=== PATIENT | male | born 1975 | race Asian ===

== ENCOUNTER 2017-08-11 07:16 | Inpatient (IN) | payer MEDICAID, OTHER ==
[2017-08-11] VITALS (10 sets, daily range): BP systolic 110–155; BP diastolic 70–102
[~2017-08-11] VITALS: Ht 182.9 cm; Wt 72.6 kg
[2017-08-11] MEDS ORDERED: Terbutaline 1mg/ml Inj SUBQ ONE ×4 (07:30→07:45)
[2017-08-11] MEDS ORDERED: Solu-MEDROL 125mg Inj IVP ONE (07:30)
[2017-08-11] MEDS: Ipratropium 0.02% Inh Soln 2.5ml UD HHN SCH ×2 (07:35→09:00)
[2017-08-11] MEDS: Albuterol ud Inhalation HHN SCH ×3 (07:35→09:01)
[2017-08-11] MEDS ORDERED: Terbutaline 1mg/ml Inj ONE (07:39)
[2017-08-11 07:40] LABS: BASOPHILS % (AUTO) 1.4 % (0.0-2.0); EOSINOPHILS % (AUTO) 11.3 % (0.0-3.0); HEMATOCRIT 51.5 % (42.0-52.0); LYMPHOCYTES % (AUTO) 42.5 % (20.0-45.0); MEAN CORPUSCULAR VOLUME 95 FL (80-99); MONOCYTES % (AUTO) 10.3 % (1.0-10.0); NEUTROPHILS % (AUTO) 34.5 % (45.0-75.0); PLATELET COUNT 446 K/UL (150-450); RED BLOOD COUNT 5.41 M/UL (4.70-6.10); RED CELL DISTRIBUTION WIDTH 11.7 % (11.6-14.8); WHITE BLOOD COUNT 14.2 K/UL (4.8-10.8)
[2017-08-11 07:48] LABS: HEMOGLOBIN 18.2 G/DL (14.2-18.0)
[2017-08-11 07:49] LABS: ANION GAP 7 mmol/L (5-15); BLOOD UREA NITROGEN 13 mg/dL (7-18); CALCIUM 8.9 MG/DL (8.5-10.1); CARBON DIOXIDE 28 MMOL/L (21-32); CHLORIDE 106 MMOL/L (98-107); CREATININE 0.8 MG/DL (0.55-1.30); POTASSIUM 4.4 MMOL/L (3.5-5.1); SODIUM 141 MMOL/L (136-145)
--- NOTE | 2017-08-11 07:51 | Emergency Room Report ---
History of Present Illness General Chief Complaint: Dyspnea/Respdistress Source: Patient Present Illness HPI Patient has a history of asthma. Develop acute onset of shortness of breath over last 30 minutes prior to arrival. According to the paramedics they found the patient in the car severely short of breath. Patient was using albuterol without much improvement. Patient has inhaler home. Patient complains of severe shortness of breath and states that this is an asthma exacerbation. He is currently speaking in complete sentences appears diaphoretic and tachypneic. Patient is undergoing respiratory treatment. Was brought here by paramedics on respiratory treatment. Patient had received 0.3 mg epinephrine subcutaneous prior to arrival.No other modifying factors. No other associated signs and symptoms. No other complaints were noted. Allergies: Coded Allergies: ASPIRIN (Verified Allergy, Intermediate, 08/11/17) IBUPROFEN (Verified Allergy, Unknown, 08/11/17) Patient History Past Medical History: asthma Social History: Denies: smoking, alcohol use, drug use Reviewed Nursing Documentation: PMH: Agreed; PSxH: Agreed Nursing Documentation-PMH Hx Asthma: Yes Review of Systems All Other Systems: negative except mentioned in HPI Physical Exam Vital Signs Date Time Temp Pulse Resp B/P (MAP) Pulse Ox O2 Delivery O2 Flow Rate FiO2 08/11/17 07:15 120 26 150/90 94 Room Air 08/11/17 07:25 15.0 35 Sp02 EP Interpretation: reviewed, abnormal - Noted to be low. General Appearance: alert, severe distress Head: atraumatic Eyes: bilateral eye normal inspection ENT: normal ENT inspection, hearing grossly normal, normal voice Neck: full range of motion, supple Respiratory: respiratory distress, decreased breath sounds, accessory muscle use, wheezing, expiration, inspiration Cardiovascular #1: no edema, tachycardia Gastrointestinal: normal inspection, normal bowel sounds, non tender, soft Genitourinary: no CVA tenderness Musculoskeletal: normal inspection, back normal, normal range of motion Neurologic: normal inspection, alert, responsive, speech normal Psychiatric: depressed affect, anxious Skin: diaphoresis Procedures Critical Care Time Critical Care Time Patient had a critical medical condition which untreated could potentially result in life or limb threatening injury. Total critical care time excluding procedures was greater than 65minutes. Medical Decision Making Diagnostic Impression: Primary Impression: Respiratory distress Additional Impression: Asthma exacerbation ER Course Patient presents emergency department today complaining of shortness of breath. Differential diagnoses include acute pneumonia, CHF, acute coronary syndrome, pneumothorax, asthma, COPD flare, just to name a few. Patient appear to be severely short of breath. This was considered critical. IV was established. Patient was given Solu-Medrol and magnesium. Patient was given subcutaneous terbutaline 2. Patient was placed on BiPAP. I she'll blood gas in detail initially showed patient to be retaining large amounts of CO2 and is acidotic. Patient however states improve steadily. Patient was examined multiple times repeat R toe blood gas shows that patient was improving. Case was discussed with Dr. Juarez. Patient will be admitted to [facility] for further treatment. Labs Test 08/11/17 07:15 08/11/17 08:02 08/11/17 09:32 White Blood Count 14.2 K/UL (4.8-10.8) Red Blood Count 5.41 M/UL (4.70-6.10) Hemoglobin 18.2 G/DL (14.2-18.0) Hematocrit 51.5 % (42.0-52.0) Mean Corpuscular Volume 95 FL (80-99) Mean Corpuscular Hemoglobin 33.6 PG (27.0-31.0) Mean Corpuscular Hemoglobin Concent 35.3 G/DL (32.0-36.0) Red Cell Distribution Width 11.7 % (11.6-14.8) Platelet Count 446 K/UL (150-450) Mean Platelet Volume 5.7 FL (6.5-10.1) Neutrophils (%) (Auto) 34.5 % (45.0-75.0) Lymphocytes (%) (Auto) 42.5 % (20.0-45.0) Monocytes (%) (Auto) 10.3 % (1.0-10.0) Eosinophils (%) (Auto) 11.3 % (0.0-3.0) Basophils (%) (Auto) 1.4 % (0.0-2.0) Sodium Level 141 MMOL/L (136-145) Potassium Level 4.4 MMOL/L (3.5-5.1) Chloride Level 106 MMOL/L (98-107) Carbon Dioxide Level 28 MMOL/L (21-32) Anion Gap 7 mmol/L (5-15) Blood Urea Nitrogen 13 mg/dL (7-18) Creatinine 0.8 MG/DL (0.55-1.30) Estimat Glomerular Filtration Rate > 60 mL/min (>60) Glucose Level 166 MG/DL (74-106) Calcium Level 8.9 MG/DL (8.5-10.1) Total Bilirubin 0.4 MG/DL (0.2-1.0) Aspartate Amino Transf (AST/SGOT) 18 U/L (15-37) Alanine Aminotransferase (ALT/SGPT) 33 U/L (12-78) Alkaline Phosphatase 68 U/L (46-116) Creatine Kinase MB 2.2 NG/ML (0.0-3.6) Troponin I 0.000 ng/mL (0.000-0.056) Pro-B-Type Natriuretic Peptide 18 pg/mL (0-125) Total Protein 8.0 G/DL (6.4-8.2) Albumin 4.3 G/DL (3.4-5.0) Globulin 3.7 g/dL Albumin/Globulin Ratio 1.2 (1.0-2.7) Arterial Blood pH 7.140 (7.350-7.450) 7.259 (7.350-7.450) Arterial Blood Partial Pressure CO2 79.0 mmHg (35.0-45.0) 57.4 mmHg (35.0-45.0) Arterial Blood Partial Pressure O2 350.9 mmHg (75.0-100.0) 265.3 mmHg (75.0-100.0) Arterial Blood HCO3 26.3 mmol/L (22.0-26.0) 25.1 mmol/L (22.0-26.0) Arterial Blood Oxygen Saturation 99.4 % (92.0-98.0) 99.4 % (92.0-98.0) Arterial Blood Base Excess -5.3 -3.2 Tho Test Positive Positive EKG Diagnostic Results Rate: tachycardiac Rhythm: NSR ST Segments: no acute changes Rhythm Strip Diag. Results EP Interpretation: yes Rate: 114 Rhythm: NSR, no PVC's, no ectopy Chest X-Ray Diagnostic Results Chest X-Ray Diagnostic Results : Chest X-Ray Ordered: Yes # of Views/Limited/Complete: 1 View Indication: Shortness of Breath EP Interpretation: Yes Interpretation: no effusion, no pneumothorax, other - Mild left side infiltrate Impression: Other - Questionable pneumonia Electronically Signed by: Electronically signed by Sasha Cavanaugh MD Last Vital Signs Date Time Temp Pulse Resp B/P (MAP) Pulse Ox O2 Delivery O2 Flow Rate FiO2 08/11/17 07:33 129 30 97 Bi-pap 15.0 97 08/11/17 07:15 150/90 Status: improved Disposition: ADMITTED INPATIENT Condition: Critical Referrals: Yinka Golden MD (PCP) SASHA CAVANAUGH M.D. August 11, 2017 07:51
[2017-08-11 08:02] LABS: ALANINE AMINOTRANSFERASE 33 U/L (12-78); ALBUMIN 4.3 G/DL (3.4-5.0); ALBUMIN/GLOBULIN RATIO 1.2 (1.0-2.7); ALKALINE PHOSPHATASE 68 U/L (46-116); ASPARTATE AMINO TRANSFERASE 18 U/L (15-37); BILIRUBIN,TOTAL 0.4 MG/DL (0.2-1.0); CKMB 2.2 NG/ML (0.0-3.6)
[2017-08-11] MEDS ORDERED: Azithromycin 500 MG in D5W 275 ML IVPB ONE (11:00)
[2017-08-11] MEDS ORDERED: cefTRIAXone 1 GM in NS 55 ML IVPB ONE (11:00)
--- NOTE | 2017-08-11 11:16 | Diagnostic Imaging Report ---
Indication: Cough Technique: XRAY Chest 1v Comparison: None Findings: Heart size and mediastinal contours are within normal limits. There is hyperinflation. There is mild peribronchial thickening. There is no focal airspace consolidation. No pleural effusion or pneumothorax. No acute osseous abnormality seen. IMPRESSION: Hyperinflation with suggestion of subtle peribronchial thickening. Findings may be related to reactive or small airway disease. Correlate clinically. No focal airspace consolidation, pleural effusion or pneumothorax.
[2017-08-11] MEDS ORDERED: SINGULAIR10 MG ORAL (11:48)
[2017-08-11] MEDS: Solu-MEDROL 40mg Inj IVP SCH (17:42)
[2017-08-11] MEDS: Albuterol/Ipratropium 3ml neb HHN SCH ×2 (19:29→23:27)
[2017-08-12] VITALS: BP 105/66
[2017-08-12] MEDS: Solu-MEDROL 40mg Inj IVP SCH ×4 (00:29→17:10)
[2017-08-12] MEDS: Albuterol/Ipratropium 3ml neb HHN SCH ×4 (03:14→15:07)
[2017-08-12 04:00] VITALS: BP 135/81
[2017-08-12 05:31] LABS: BASOPHILS % (AUTO) 0.1 % (0.0-2.0); HEMATOCRIT 45.8 % (42.0-52.0); HEMOGLOBIN 16.6 G/DL (14.2-18.0); LYMPHOCYTES % (AUTO) 11.9 % (20.0-45.0); MEAN CORPUSCULAR VOLUME 96 FL (80-99); MONOCYTES % (AUTO) 4.4 % (1.0-10.0); NEUTROPHILS % (AUTO) 83.7 % (45.0-75.0); PLATELET COUNT 364 K/UL (150-450); RED BLOOD COUNT 4.77 M/UL (4.70-6.10); WHITE BLOOD COUNT 6.8 K/UL (4.8-10.8)
[2017-08-12 05:52] LABS: ANION GAP 7 mmol/L (5-15); BLOOD UREA NITROGEN 10 mg/dL (7-18); CALCIUM 8.8 MG/DL (8.5-10.1); CARBON DIOXIDE 28 MMOL/L (21-32); CHLORIDE 107 MMOL/L (98-107); CREATININE 0.6 MG/DL (0.55-1.30); SODIUM 142 MMOL/L (136-145)
[2017-08-12 08:00] VITALS: BP 126/69
[2017-08-12] MEDS ORDERED: NS 500ML ONE (10:40)
[2017-08-12] MEDS ORDERED: Tubing IV Secondary IV ONE (10:40)
[2017-08-12 12:00] VITALS: BP 126/80
[2017-08-12 16:00] VITALS: BP 148/88
[2017-08-12] MEDS ORDERED: Levalbuterol Inh UD 1.25mg/0.5ml HHN SCH (17:00)
--- NOTE | 2017-08-12 18:45 | History and Physical Report ---
DATE OF ADMISSION: 08/12/2017 HISTORY OF PRESENT ILLNESS: This is a 41-year-old male that I have seen before at an outside hospital with a similar problem. He again presented now to [facility] with exacerbation of bronchial asthma. Paramedics were called. The patient was found to be sitting at home with severe shortness of breath. He was brought to the emergency room. The ER physician initially thought about intubating, but decided to go with epinephrine subcutaneous as well as BiPAP. The patient has improved significantly overnight and is able to speak complete sentences, however, is tachypneic. PAST MEDICAL HISTORY: Episodes of previous severe bronchial asthma. He also is a former smoker. There is no history of tuberculosis. No other medical illnesses noted. PAST SURGICAL HISTORY: No surgeries reported. SOCIAL HISTORY: He lives with family in other area. There are no pets at home. He has quit smoking recently. REVIEW OF SYSTEMS: Denies any headaches, hematemesis, melena, hematochezia, or weight loss. PHYSICAL EXAMINATION: GENERAL: Reveals a 41-year-old male. VITAL SIGNS: Blood pressure is 150/90, heart rate is 104, respirations 22, and O2 saturation 94% with oxygen. HEENT: Unremarkable. CHEST: Shows bilateral rhonchi and decreased breath sounds. ABDOMEN: Soft. EXTREMITIES: There is no edema. NEUROLOGIC: Nonfocal. IMPRESSION: Exacerbation of bronchial asthma. DISCUSSION: Admit to the hospital. We will start the patient on IV Solu-Medrol along with empiric antibiotics and breathing treatments every 4 hours. We will follow carefully and he will be discharged home in the next 24 hours. We will advance diet. Enrique Colón M.D. DR: FIDE JOB#: [id number] CC:
[2017-08-12] MEDS: Levalbuterol Inh UD 1.25mg/0.5ml HHN SCH ×2 (19:20→22:55)
[2017-08-12] MEDS: Ipratropium 0.02% Inh Soln 2.5ml UD HHN SCH ×2 (19:20→22:54)
[2017-08-12 20:00] VITALS: BP 143/82
[2017-08-13] VITALS: BP 104/64
[2017-08-13] MEDS: Solu-MEDROL 40mg Inj IVP SCH ×2 (00:12→05:56)
[2017-08-13] MEDS: Ipratropium 0.02% Inh Soln 2.5ml UD HHN SCH ×2 (02:43→07:45)
[2017-08-13] MEDS: Levalbuterol Inh UD 1.25mg/0.5ml HHN SCH ×2 (02:43→07:45)
[2017-08-13 04:00] VITALS: BP 112/70
[2017-08-13 05:29] LABS: HEMATOCRIT 44.3 % (42.0-52.0); HEMOGLOBIN 15.9 G/DL (14.2-18.0); MEAN CORPUSCULAR VOLUME 96 FL (80-99); PLATELET COUNT 344 K/UL (150-450); RED BLOOD COUNT 4.61 M/UL (4.70-6.10); RED CELL DISTRIBUTION WIDTH 11.7 % (11.6-14.8)
[2017-08-13 05:55] LABS: ANION GAP 7 mmol/L (5-15); BLOOD UREA NITROGEN 21 mg/dL (7-18); CALCIUM 8.9 MG/DL (8.5-10.1); CARBON DIOXIDE 28 MMOL/L (21-32); CHLORIDE 106 MMOL/L (98-107); CREATININE 0.7 MG/DL (0.55-1.30); SODIUM 141 MMOL/L (136-145)
[2017-08-13 08:00] VITALS: BP 120/72
--- NOTE | 2017-08-13 09:00 | Pulmonology Progress Note ---
Assessment/Plan Assessment/Plan IMPRESSION: Exacerbation of bronchial asthma. DISCUSSION: DC home PO steroids Breo levaquin Pro-air He has home O2 already Enrique Colón M.D. Subjective Interval Events: Much better Constitutional: Reports: no symptoms HEENT: Repors: no symptoms Respiratory: Reports: no symptoms Allergies: Coded Allergies: ASPIRIN (Verified Allergy, Intermediate, 08/11/17) IBUPROFEN (Verified Allergy, Unknown, 08/11/17) Objective Last 24 Hour Vital Signs Date Time Temp Pulse Resp B/P (MAP) Pulse Ox O2 Delivery O2 Flow Rate FiO2 08/13/17 07:55 110 20 95 Nasal Cannula 3.0 32 08/13/17 07:45 114 20 95 Nasal Cannula 3.0 32 08/13/17 07:45 32 08/13/17 04:00 106 08/13/17 04:00 98.5 98 20 112/70 94 Nasal Cannula 3.0 98.5 08/13/17 02:53 113 20 94 Nasal Cannula 3.0 32 08/13/17 02:42 113 20 94 Nasal Cannula 3.0 32 08/13/17 02:42 32 08/13/17 00:00 113 08/13/17 00:00 97.9 95 20 104/64 94 Nasal Cannula 3.0 97.9 08/12/17 23:08 117 20 95 Nasal Cannula 3.0 32 08/12/17 22:54 32 08/12/17 22:53 117 20 95 Nasal Cannula 3.0 32 08/12/17 20:00 123 08/12/17 20:00 98.0 131 20 143/82 95 Nasal Cannula 3.0 98.0 08/12/17 19:35 121 20 93 Nasal Cannula 3.0 32 08/12/17 19:19 32 08/12/17 19:18 121 20 93 Nasal Cannula 3.0 32 08/12/17 16:07 133 08/12/17 16:00 97.9 129 20 148/88 91 Nasal Cannula 3.0 97.9 08/12/17 15:18 126 20 98 Nasal Cannula 2.0 08/12/17 15:07 119 20 95 Nasal Cannula 2.0 32 08/12/17 12:00 98.8 128 20 126/80 91 Nasal Cannula 3.0 98.8 08/12/17 12:00 145 08/12/17 11:33 110 20 98 Nasal Cannula 2.0 08/12/17 11:23 104 20 94 Nasal Cannula 2.0 32 Intake and Output 08/12/17 08/13/17 19:00 07:00 Intake Total 900 ml Output Total 900 ml 1000 ml Balance 0 ml -1000 ml Intake Oral 700 ml IV Total 200 ml Output Urine Total 900 ml 1000 ml General Appearance: no acute distress HEENT: normocephalic Respiratory/Chest: chest wall non-tender, lungs clear Cardiovascular: normal peripheral pulses, normal rate Microbiology Date/Time Source Procedure Growth Status 08/11/17 11:30 Blood Blood Culture - Preliminary NO GROWTH AFTER 24 HOURS Resulted 08/11/17 11:15 Blood Blood Culture - Preliminary NO GROWTH AFTER 24 HOURS Resulted Laboratory Tests 08/13/17 03:35: White Blood Count 12.0#H, Red Blood Count 4.61L, Hemoglobin 15.9, Hematocrit 44.3, Mean Corpuscular Volume 96, Mean Corpuscular Hemoglobin 34.4H, Mean Corpuscular Hemoglobin Concent 35.8, Red Cell Distribution Width 11.7, Platelet Count 344, Mean Platelet Volume 5.8L, Neutrophils (%) (Auto) , Lymphocytes (%) ( Auto) , Monocytes (%) (Auto) , Eosinophils (%) (Auto) , Basophils (%) (Auto) , Differential Total Cells Counted 100, Neutrophils % (Manual) 84H, Lymphocytes % (Manual) 11L, Monocytes % (Manual) 5, Eosinophils % (Manual) 0, Basophils % ( Manual) 0, Band Neutrophils 0, Platelet Estimate Adequate, Platelet Morphology Normal, Red Blood Cell Morphology Normal, Sodium Level 141, Potassium Level 4.0 , Chloride Level 106, Carbon Dioxide Level 28, Anion Gap 7, Blood Urea Nitrogen 21H, Creatinine 0.7, Estimat Glomerular Filtration Rate > 60, Glucose Level 141H , Calcium Level 8.9 Current Medications Medications (Trade) Dose Ordered Sig/Janay Route PRN Reason Start Time Stop Time Status Last Admin Dose Admin Ipratropium [place] (Atrovent) 500 mcg Q4HRT HHN 08/12/17 19:00 08/17/17 18:59 5/6/18 07:45 Levalbuterol HCl (Xopenex) 0.63 mg Q4HRT HHN 08/12/17 19:00 08/17/17 18:59 08/13/17 07:45 Levofloxacin 100 ml @ 100 mls/hr Q24H IVPB 08/11/17 15:30 08/18/17 15:29 08/12/17 15:42 Methylprednisolone Sodium Succinate (Solu-MEDROL) 40 mg EVERY 6 HOURS IVP 08/11/17 18:00 09/10/17 17:59 08/13/17 05:56 Enrique Colón MD August 13, 2017 09:00
[2017-08-13] MEDS ORDERED: LEVAQUIN500 MG ORAL (09:02)
[2017-08-13] MEDS ORDERED: MEDROL4 MG ORAL (09:02)
[2017-08-13] MEDS ORDERED: BREO ELLIPTA 21 EACH IH (09:02)
--- NOTE | 2017-08-13 11:59 | Cardiology Report ---
APPROVED REPORT EKG Measurement Heart [id number] Sinus tachycardia Rightward axis Borderline ECG
--- NOTE | 2017-08-15 13:22 | Discharge Summary ---
Discharge Summary Discharge Summary Discharge Summary DATE OF ADMISSION: 08/11/2017 DATE OF DISCHARGE: 08/13/2017 REASON FOR ADMISSION: 41 years old male with history of asthma, former smoker, developed acute shortness of breath 30 minutes prior to arrival. Paramedics found patient in the car with severe shortness of breath. Patient reported using albuterol inhaler without much improvement. Patient had home oxygen and inhalers. Patient had prior exacerbation of asthma. Patient was able to speak in complete sentences upon arrival to ED, but was tachypneic and diaphoretic. Patient was brought by paramedics on respiratory treatment. Patient received 0.3 mg of subcutaneous epinephrine prior to arrival. Upon evaluation patient in ED patient was found to be tachycardic,tachypneic , and hypoxic. WBC 14.2. Hemoglobin 18.2. Troponin negative . EKG revealed sinus tachycardia, no acute ischemic changes. Chest x-ray revealed hyperinflation suggestive peribronchial thickening. Finding possibly related to reactive or small airway disease. No focal airspace consolidation, pleural effusion or pneumothorax. Patient was admitted with respiratory distress, exacerbation of bronchial asthma for further management HOSPITAL COURSE: Patient was admitted. Patient started on intravenous steroids. Supplemental oxygen provided as needed to keep pulse oximetry above 92%. Handheld nebulizing treatment with bronchodilator provided around the clock every 4 hours and as needed. Patient was started on empiric antibiotic. Blood cultures were negative. Patient was slowly improving. No respiratory digress. Patient was stable for discharge on oral steroids, oral antibiotic and on inhalers including rescue inhaler Pro Air and maintenance inhaler Breo. Patient already had home oxygen. Patient was counseled to continue abstinence from smoking. Patient was encouraged medication compliance. FINAL DIAGNOSES: Respiratory distress Acute exacerbation of bronchial asthma DISCHARGE MEDICATIONS: See Medication Reconciliation list. DISCHARGE INSTRUCTIONS: Patient was discharged home. Patient to follow up with primary care provider building appraiser next week I have been assigned to dictate discharge summary for this account. I was not involved in the patient's management. Rosanna Mejia NP ([place]) August 15, 2017 13:22
== END 2017-08-13 10:45 | disposition home or self-care (01) | DRG 141 ==
LOC: EDBD 07:16 → EMR 07:44 → 2W 10:56 → EDBEDREQ 10:58
DX: J45.901 Unspecified asthma with (acute) exacerbation (principal); Z87.891 Personal history of nicotine dependence
CPT/HCPCS: 36415; 36600; 71045; 80048; 80053; 82553; 82803; 83880; 84484; 85007; 85025; 87040; 93005; 94640; 94660; 94664; 99285; 99291; J7620